=== PATIENT | male | born 1955 | race Caucasian/White ===

== ENCOUNTER 2019-05-11 15:28 | Emergency (ER) | payer OTHER ==
[~2019-05-11] VITALS: Ht 182.9 cm; Wt 81.6 kg
[2019-05-11 15:32] VITALS: Ht 182.9 cm; Wt 81.6 kg
[2019-05-11 20:10] VITALS: BP 120/77
== END 2019-05-11 20:10 | disposition home or self-care (01) ==
LOC: EDBD 15:28 → ED 15:28
DX: S01.511A Laceration without foreign body of lip, initial encounter (principal); S13.4XXA Sprain of ligaments of cervical spine, initial encounter; K21.9 Gastro-esophageal reflux disease without esophagitis; V89.2XXA Person injured in unspecified motor-vehicle accident, traffic, initial encounter; Y93.I9 Activity, other involving external motion; Y92.413 State road as the place of occurrence of the external cause; Y99.8 Other external cause status
CPT/HCPCS: 90715; J1885; J2001

== ENCOUNTER 2019-05-13 09:51 | Emergency (ER) | payer OTHER ==
[~2019-05-13] VITALS: Ht 182.9 cm; Wt 77.6 kg
[2019-05-13 10:31] VITALS: BP 118/70; Ht 182.9 cm; Wt 77.6 kg
== END 2019-05-13 11:30 | disposition home or self-care (01) ==
LOC: ED 09:51
DX: S01.511D Laceration without foreign body of lip, subsequent encounter (principal); X58.XXXD Exposure to other specified factors, subsequent encounter; K21.9 Gastro-esophageal reflux disease without esophagitis; F17.210 Nicotine dependence, cigarettes, uncomplicated